=== PATIENT | female | born 2000 ===

== ENCOUNTER 2023-01-26 16:35 | Outpatient (RCR) | payer BC, SELFPAY | END 2023-02-12 23:59 | disposition home or self-care (01) | LOC: SPT 16:35 | PROVIDERS: PCP Nurse Practitioner Family; Visit Provider Nurse Practitioner Family | DX: R42 Dizziness and giddiness (principal) | CPT/HCPCS: 95992; 97161 ==

== ENCOUNTER → 2023-04-28 16:48 | Outpatient (BNVA) | payer BC, SELFPAY | PROVIDERS: PCP Nurse Practitioner Family; Visit Provider Internal Medicine | DX: E05.90 Thyrotoxicosis, unspecified without thyrotoxic crisis or storm (principal) | CPT/HCPCS: 84439; 84443; 84480 ==

== ENCOUNTER 2023-08-02 11:28 | Outpatient (CLI) | payer BC, SELFPAY ==
[2023-08-02 12:50] LABS: Free T4 Free Thyroxine 1.55 ng/dL (0.82-1.77); Thyroid Stimulating Hormone 0.41 uIU/mL (0.27-4.20)
[2023-08-04 00:11] LABS: T3 Total 145 ng/dL (86-192)
== END 2023-08-02 11:29 | disposition home or self-care (01) ==
LOC: LAB 11:31
PROVIDERS: PCP Nurse Practitioner Family; Visit Provider Internal Medicine
DX: E05.90 Thyrotoxicosis, unspecified without thyrotoxic crisis or storm (principal)
CPT/HCPCS: 84439; 84443; 84480